=== PATIENT | male | born 1995 | race African-American/Black ===

== ENCOUNTER 2020-09-26 16:09 | Emergency (ER) | payer OTHER, SELFPAY ==
[2020-09-26 16:12] VITALS: BP 132/74; PULSE 100; RESP 21; TEMP 36.3; O2SAT 100
[2020-09-26] MEDS: SILVER SULFADIAZINE 1% CR 50 GM JAR (*BKC) 1 APPLIC TOPICAL (17:32)
[2020-09-26] MEDS: diazePAM (*CRX) 5 MG TABLET PO (17:32)
[2020-09-26] MEDS: HYDROcodone/acetaminophen (*CRX) 5-325 MG TABLET 1 TAB PO (17:32)
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
[2020-09-26] MEDS: HYDROcodone/acetaminophen (*CRX) 5-325 MG TABLET 1 TAB (18:10)
--- NOTE | 2020-09-26 18:10 | PC.NURSE ---
vorb to give the pt norco-5-325 mg po x1 prior to dc from ed from [facility]
== END 2020-09-26 18:11 | disposition home or self-care (01) ==
PROVIDERS: Emergency Provider Emergency Medicine
DX: T23.262A Burn of second degree of back of left hand, initial encounter (principal); T23.261A Burn of second degree of back of right hand, initial encounter; T31.0 Burns involving less than 10% of body surface; X10.2XXA Contact with fats and cooking oils, initial encounter
CPT/HCPCS: 16020; 99283; A9270

== ENCOUNTER 2020-10-18 09:24 | Outpatient (RCR) | payer OTHER, SELFPAY ==
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
--- NOTE | 2020-10-25 11:19 | PCOTNOTE ---
Patient was seen for OT evaluation on 10/18/20 and scheduled for follow up appointments on 10/22/20 and 10/25/20 and did not show to appointments. OT left message on patient's voicemail and patient has failed to reschedule. Will notify patient's doctor and workman's comp. MS
--- NOTE | 2020-11-16 16:29 | PCOTNOTE ---
Patient seen for evaluation only on 10/18/20 and failed to show to follow up appointments. Patient is discharged from skilled OT services at this time. MS
== END 2020-10-18 13:28 | disposition home or self-care (01) ==
LOC: CHSOT 09:24
PROVIDERS: Visit Provider Plastic Surgery
DX: T23.22 Burn of second degree of single finger (nail) except thumb (principal)
CPT/HCPCS: 97110; 97165

== ENCOUNTER 2021-12-06 14:51 | Emergency (ER) | payer SELFPAY ==
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
[2021-12-06 15:10] VITALS: BP 149/84; PULSE 98; RESP 16; TEMP 36.4; O2SAT 99
[2021-12-06] MEDS: TETANUS,DIPHTHERIA,AC PERTUSSIS ADULT (0.5 ML) BOOSTRIX IM (16:04)
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
[2021-12-06] MEDS: ceFAZolin 2 GM/D5W 50 ML 2 GM/50 ML BAG IVPB (16:10)
--- NOTE | 2021-12-06 16:26 | PC.NURSE ---
patient questioned what would happen if he did not go to [facility] for foot. advised that there are foreign bodies noted in foot per xray results. risk for infection and possible amputation if left untreated. patient verbalized understanding. mother present at bedside at all times
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
--- NOTE | 2021-12-06 17:30 | PC.NURSE ---
[place] [employer] present at bedside with pt and pt mother.
[2021-12-06] MEDS: ONDANSETRON INJ 4 MG/2 ML VIAL IV PUSH (17:40)
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
[2021-12-06] MEDS: MORPHINE SULFATE (*CRX) 4 MG/ML INJ IV PUSH (17:41)
[2021-12-06 17:49] VITALS: BP 154/86; PULSE 90; RESP 16; TEMP 36.9; O2SAT 98
--- NOTE | 2021-12-06 17:50 | PC.NURSE ---
patient signed AMA forms. [facility] here spoke with patient. ok to discharge patient per PD and charge nurse. packet and radiology CD sent with patient. IV removed prior to discharge
== END 2021-12-06 17:57 | disposition left against medical advice (07) ==
LOC: ANHED 16:29
PROVIDERS: Emergency Provider Emergency Medicine
DX: S91.332A Puncture wound without foreign body, left foot, initial encounter (principal); Z23 Encounter for immunization; W45.8XXA Other foreign body or object entering through skin, initial encounter
CPT/HCPCS: 73630; 90471; 90715; 96365; 96375; 99284; J0690; J2270; J2405

== ENCOUNTER 2023-12-20 09:58 | Emergency (ER) | payer MEDICAID, SELFPAY ==
--- NOTE | 2023-12-20 10:02 | ED.URI ---
HPI - URI/Sore Throat General Chief Complaint: Upper Respiratory Infection Stated Complaint: SOB Time Seen by Provider: 12/20/23 10:02 Source: patient Mode of arrival: ambulatory Limitations: no limitations History of Present Illness HPI Narrative: Patient is a 28-year-old male who presents with 3 days of congestion after working outside [employer]. Patient states he has taken Claritin a few times with no relief. Denies any fever, chills, nausea, vomiting, diarrhea, congestion, ear pain. Related Data Home Medications Medication Instructions Recorded Confirmed lamotrigine 25 mg tablet 25 mg PO DAILY 09/26/20 12/20/23 prazosin 1 mg capsule 1 mg PO DAILY 09/26/20 12/20/23 Allergies Allergy/AdvReac Type Severity Reaction Status Date / Time No Known Allergies Allergy Verified 12/20/23 10:07 Review of Systems Review of Systems: All systems reviewed & are unremarkable except as noted in HPI and below Constitutional: Constitutional: Denies body ache(s), Denies chills, Denies fatigue, Denies fever(s), Denies headache(s), Denies malaise and Denies weakness Eyes: Eyes: Denies blurry vision, Denies itchy eyes and Denies loss of vision ENT: Denies otalgia, Denies headache(s), Reports nasal congestion, Denies sinus pain and Denies sore throat Cardiovascular: Cardiovascular: Denies chest pain, Denies irregular heart rhythm and Denies dyspnea Respiratory: Respiratory: Denies cough and Denies dyspnea Gastrointestinal: Gastrointestinal: Denies abdominal pain, Denies diarrhea, Denies nausea and Denies vomiting Musculoskeletal: Musculoskeletal: Denies back pain, Denies myalgias and Denies arthralgias Integumentary/Breasts: Skin/Breast: Denies pruritus and Denies rash Neurologic: Denies headache(s), Denies loss of vision and Denies weakness Psychiatric: Psychiatric: Reports no additional psychiatric complaints Endocrine: Endocrine: Denies fatigue Allergic/Immunologic: Allergic/Immunologic: Denies itchy eyes PMFSH Social History Social History Smoking status: Never smoker Gender identity (if verbalized by the patient): Male Comments At time of signature, agree with nursing past medical, surgical, social and family history. There is no relevant family history pertinent to the presenting complaint. Exam Const: General: cooperative, healthy appearing, comfortable, no acute distress and well nourished Nutritional Appearance: well nourished Orientation/consciousness: patient oriented x3 Limitations: no limitations HENMT: Head: normal to inspection, normocephalic and atraumatic Ears: hearing grossly normal bilaterally, external ears normal, TM's normal bilaterally, EAC's normal and no periauricular adenopathy Face/Nose/Sinus: Normal external nose present, Abnormal mucous membranes and turbinates present erythematous bilateral and diffuse, normal facial exam, sinuses nontender and face symmetric Face and sinus: normal facial exam, sinuses nontender and face symmetric Mouth: Yes Normal oral and palatal mucosa present, Yes lip normal, Yes tongue normal, Yes Normal salivary glands and ducts present, Yes oropharynx normal and Yes moist mucous membranes Teeth and gingiva: dentition normal Throat: posterior oropharynx normal, tonsils normal and uvula midline Eyes: General: appearance normal, both eyes and all related structures Alignment and Position: alignment normal and position normal Periorbital: periorbital findings normal Eyelids: eyelids normal Pupils: Equal, round and reactive pupils present Neck: Neck: normal visual inspection, full ROM, no lymphadenopathy and supple Chest: Chest palpation & inspection: normal inspection of the chest and normal palpation of entire chest wall Resp: Effort & Inspection: normal respiratory effort and able to speak in complete sentences Auscultation: no crackles, no rales, no rhonchi, wheezes inspiratory wheezes, left upper and ri
[2023-12-20 10:13] VITALS: BP 151/93; PULSE 89; RESP 14; TEMP 37; O2SAT 100
[2023-12-20] MEDS: IPRATROPIUM 0.5 MG/ALBUTEROL SULFATE 2.5 MG AMPUL.NEB 3 ML INHALATION (10:31)
== END 2023-12-20 10:55 | disposition home or self-care (01) ==
PROVIDERS: Emergency Provider Nurse Practitioner Family
DX: J45.909 Unspecified asthma, uncomplicated (principal)
CPT/HCPCS: 94640; 99213; G0463